=== PATIENT | female | born 1965 | race Caucasian/White ===

== ENCOUNTER 2020-02-15 08:31 | Emergency (ER) | payer OTHER ==
[~2020-02-15] VITALS: Ht 152.4 cm; Wt 85.7 kg
[2020-02-15 08:41] VITALS: Ht 152.4 cm; Wt 85.7 kg
[2020-02-15 09:57] VITALS: BP 131/81
== END 2020-02-15 09:57 | disposition home or self-care (01) ==
LOC: ED 08:31
DX: G89.29 Other chronic pain (principal); M25.561 Pain in right knee; R22.41 Localized swelling, mass and lump, right lower limb; I10 Essential (primary) hypertension; E78.00 Pure hypercholesterolemia, unspecified; M79.7 Fibromyalgia; Z98.890 Other specified postprocedural states; Z88.0 Allergy status to penicillin
CPT/HCPCS: J1100; J1885

== ENCOUNTER 2020-03-16 07:57 | Emergency (ER) | payer OTHER ==
[~2020-03-16] VITALS: Ht 152.4 cm; Wt 81.6 kg
[2020-03-16 08:05] VITALS: Ht 152.4 cm; Wt 81.6 kg
[2020-03-16 10:14] VITALS: BP 101/69
== END 2020-03-16 11:27 | disposition home or self-care (01) ==
LOC: ED 07:57
DX: M25.561 Pain in right knee (principal); M19.90 Unspecified osteoarthritis, unspecified site; I10 Essential (primary) hypertension; M79.7 Fibromyalgia; Z90.710 Acquired absence of both cervix and uterus; Z98.890 Other specified postprocedural states; Z88.0 Allergy status to penicillin
CPT/HCPCS: J1885